=== PATIENT | male | born 1980 | race Caucasian/White ===

== ENCOUNTER 2022-09-24 20:50 | Emergency (ER) | payer OTHER, SELFPAY ==
[2022-09-24 21:00] VITALS: BP 151/94; BP 152/88; PULSE 114; PULSE 96; RESP 18; O2SAT 94; O2SAT 97; BMI 32.6
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
--- NOTE | 2022-09-24 21:45 | PC.NURSE ---
Rights to statutory and consent form read and given to pt by uniform patrol police officer. Pt declined chemical testing at this time.
[2022-09-24 23:45] LABS: Ethanol 284 mg/dL
--- NOTE | 2022-09-25 00:19 | PC.NURSE ---
Pt aox4 in police custody. Reports wanting to leave and go to [facility] in order to bail out . Pt is refusing to have CT scan done and declines medical care. Discharge and AMA instructions reviewed with pt. Pt signed forms and verbalizes understanding.
== END 2022-09-25 00:40 | disposition left against medical advice (07) ==
PROVIDERS: Emergency Provider Emergency Medicine
DX: S01.81XA Laceration without foreign body of other part of head, initial encounter (principal); F10.129 Alcohol abuse with intoxication, unspecified; Y90.8 Blood alcohol level of 240 mg/100 ml or more; V47.5XXA Car driver injured in collision with fixed or stationary object in traffic accident, initial encounter; Y93.9 Activity, unspecified; Y92.410 Unspecified street and highway as the place of occurrence of the external cause; Y99.9 Unspecified external cause status
CPT/HCPCS: 12013; 36415; 82077; 99283; 99284